=== PATIENT | male | born 1980 | race African-American/Black ===

== ENCOUNTER 2017-04-23 08:54 | Emergency (ER) | payer SELFPAY ==
[2017-04-23 09:39] LABS: Hemoglobin 15.8 g/dL (14.0-18.0); Mean Corpuscular HGB CONC 33.5 g/dL (32.0-36.0); Mean Corpuscular Hemoglobin 31.8 pg (27.0-31.0); Mean Platelet Volume 6.4 fL (7.4-10.4); Platelet Count 205 thou/uL (130-400); RBC Distribution Width 12.2 % (11.5-14.5); Red Blood Cell (RBC) Count 4.96 mill/uL (4.70-6.10); White Blood Cell (WBC) Count 3.7 thou/uL (4.8-10.8)
[2017-04-23 09:47] LABS: Bilirubin Negative (Negative); Blood, Urine Large (Negative); Clarity CLEAR (Clear); Glucose, Urine (Dipstick) Negative (Negative); Leukocyte Negative (Negative); Nitrite Negative (Negative); Protein, Urine (Dipstick) Negative (Neg-Trace); Specific Gravity, Urine 1.031 (1.002-1.036); Urobilinogen 0.2 mg/dL (0.2-1.0)
[2017-04-23 09:49] LABS: Bacteria/HPF None Seen HPF (None Seen); Hyaline Casts/LPF 0-3 HYALINE CAST LPF (0-3 Hyaline); Pathc Cast-AUWi Flag 0.27 (0-2.49); Squamous Epithelial None Seen HPF (0-3); WBC/HPF 0-3 HPF (0-3)
[2017-04-23 09:53] LABS: ALT (SGPT) 19 U/L (8-55); AST (SGOT) 19 U/L (5-34); Albumin 4.3 g/dL (3.5-5.0); Alkaline Phosphatase 45 U/L (40-150); Anion Gap 9 mmol/L (10-20); BUN (Urea Nitrogen) 13 mg/dL (8.9-20.6); Bilirubin, Total 0.3 mg/dL (0.2-1.2); Calc. Creatinine Clearance 0 mL/min (70-130); Calcium 8.9 mg/dL (7.8-10.44); Carbon Dioxide 28 mmol/L (22-29); Chloride 103 mmol/L (98-107); Estimated GFR-MDRD Greater than 90; Globulin 2.8 g/dL (2.4-3.5); Glucose 96 mg/dL (70-105); Lipase 16 U/L (8-78); Potassium 3.8 mmol/L (3.5-5.1); Protein, Total 7.1 g/dL (6.0-8.3); Sodium 136 mmol/L (136-145)
[2017-04-23] MEDS ORDERED: Ondansetron ODT 8 MG TAB ONE (09:53)
[2017-04-23] MEDS ORDERED: Glycopyrrolate 0.4 MG/ 2 ML VIAL IM SCH (10:00)
[2017-04-23 10:04] LABS: Band 1 % (5-11); Eosinophils 4 % (0-10); Lymphocytes 50 % (21-51); Monocytes 17 % (0-10); Neutrophil 25 % (42-75); Reactive Lymphocytes 3 % (0-10)
[2017-04-23 10:05] LABS: PLT Morphology Comment Appears Adequate
[2017-04-23] MEDS ORDERED: Glycopyrrolate 0.2 MG/ML 5 ML SYRINGE FS SCH (10:15)
[2017-04-23 10:29] LABS: MDiff Complete? YES
== END 2017-04-23 11:05 | disposition home or self-care (01) ==
LOC: ERS 08:54
DX: R11.2 Nausea with vomiting, unspecified (principal); R19.7 Diarrhea, unspecified; Z87.891 Personal history of nicotine dependence
CPT/HCPCS: 36415; 80053; 81003; 81015; 83690; 85025; 96372

== ENCOUNTER 2019-05-11 19:56 | Emergency (ER) | payer SELFPAY ==
[2019-05-11] MEDS ORDERED: Ketorolac Tromethamine 30 MG/ML VIAL ONE (20:25)
== END 2019-05-11 20:35 | disposition home or self-care (01) ==
LOC: ERS 19:56
DX: M54.5 Low back pain (principal); Z87.891 Personal history of nicotine dependence; X50.0XXA Overexertion from strenuous movement or load, initial encounter
CPT/HCPCS: 96372; 99283; J1885

== ENCOUNTER 2021-09-19 13:27 | Emergency (ER) | payer BC, SELFPAY | END 2021-09-19 14:44 | disposition home or self-care (01) | LOC: ERS 13:27 | DX: M25.531 Pain in right wrist (principal); F17.210 Nicotine dependence, cigarettes, uncomplicated ==